=== PATIENT | male | born 1975 ===

== ENCOUNTER 2024-08-23 06:18 | Day surgery (SDC) | payer BC, SELFPAY ==
[2024-08-23] VITALS (8 sets, daily range): BP systolic 95–130; BP diastolic 61–89; BMI 23.0
[2024-08-23] MEDS: NORMOSOL-R/PLASMALYTE-A 1000 IV (13:29)
[2024-08-23] MEDS: SUBLIMAZE 50 MCG IV (21:16)
[2024-08-23] MEDS: TORADOL 15 MG IV (21:25)
[2024-08-23] MEDS: OFIRMEV 100 IV (21:47)
[2024-08-23] MEDS: ROXICODONE 5 MG PO (21:50)
[2024-08-23] MEDS: ANCEF 5 IV (22:09)
== END 2024-08-23 22:15 | disposition home or self-care (01) ==
LOC: SDS 06:18
PROVIDERS: ATTENDING PHYSICIAN Orthopaedic Surgery Hand Surgery
DX: S52.021A Displaced fracture of olecranon process without intraarticular extension of right ulna, initial encounter for closed fracture (principal); W19.XXXA Unspecified fall, initial encounter
CPT/HCPCS: 24685; C1713; 73070; 76000